=== PATIENT | female | born 1950 | race Caucasian/White ===

== ENCOUNTER → 2016-12-24 | Outpatient (CLI) | payer OTHER | END | disposition home or self-care (01) | LOC: C.MAMM 08:55 | PROVIDERS: ATTEND Nurse Practitioner Adult Health | DX: M47.812 Spondylosis without myelopathy or radiculopathy, cervical region (principal); M81.0 Age-related osteoporosis without current pathological fracture; M85.80 Other specified disorders of bone density and structure, unspecified site; E55.9 Vitamin D deficiency, unspecified; F17.200 Nicotine dependence, unspecified, uncomplicated; Z79.83 Long term (current) use of bisphosphonates; Z78.0 Asymptomatic menopausal state; Z82.62 Family history of osteoporosis ==

== ENCOUNTER → 2017-01-15 | Outpatient (CLI) | payer OTHER ==
--- NOTE | 2017-01-15 12:39 | MAMMOGRAPHY REPORT ---
BILATERAL DIGITAL SCREENING MAMMOGRAM WITH CAD: 01/15/2017 CLINICAL HISTORY: Routine screening. Patient has no complaints. TECHNIQUE: Current study was also evaluated with a Computer Aided Detection (CAD) system. COMPARISON: Comparison is made to exams dated: 01/12/2016 mammogram, 01/04/2014 mammogram, 01/11/2015 ma mmogram, 12/30/2012 mammogram, 12/24/2011 mammogram, and 12/19/2010 mammogram - [facility] nter. BREAST COMPOSITION: There are scattered areas of fibroglandular density in both breasts. FINDINGS: The parenchymal pattern is unchanged. No developing mass, architectural distortion or clu ster of suspicious microcalcifications is seen in either breast. IMPRESSION: ACR BI-RADS CATEGORY 2: BENIGN There is no mammographic evidence of malignancy. A 1 year screening mammogram is recommended. The p atient will receive written notification of the results. Approximately 10% of breast cancers are not detected with mammography. A negative mammographic repor t should not delay biopsy if a clinically suggestive mass is present. Fior Maddox M.D. ay/:01/15/2017 08:39:26 Internet Marketing Specialist: Alondra MCKENNA(Jan)(Yovanny), [facility] letter sent: Normal 1/2 BI-RADS Code: ACR BI-RADS Category 2: Benign
== END | disposition home or self-care (01) ==
LOC: C.MAMM 08:09
PROVIDERS: ATTEND Internal Medicine
DX: Z12.31 Encounter for screening mammogram for malignant neoplasm of breast (principal)

== ENCOUNTER → 2017-02-28 | Outpatient (CLI) | payer OTHER ==
[2017-02-28 09:48] LABS: BASO % 0.7 %; BASO ABS # 0.05 K/uL (0-0.2); COMPLETE YES; EOS % 3.7 %; HEMATOCRIT 45.4 % (37-47); IG% 0.4 %; LYMPH % 34.3 %; LYMPH ABS # 2.52 K/uL (1.2-3.4); MEAN CELL VOLUME 96.2 fL (80-100); MEAN CORPUSCULAR HEMOGLOBIN 31.8 pg (25-34); MEAN PLATELET VOLUME 10.4 fL (7.4-10.4); MONO % 7.3 %; NEUT % 53.6 %; PLATELET COUNT 280 K/uL (130-400); RED BLOOD COUNT 4.72 M/uL (4.2-5.4); WHITE BLOOD COUNT 7.35 K/uL (4.8-10.8)
[2017-02-28 10:15] LABS: ALT/SGPT 22 U/L (12-78); BLOOD UREA NITROGEN 19 mg/dl (7-18); BUN/CREATININE RATIO 34.6 (10-20); CARBON DIOXIDE 29 mmol/L (21-32); CHLORIDE 108 mmol/L (98-107); CHOLESTEROL 196 mg/dl (0-200); CREATININE 0.56 mg/dl (0.60-1.20); GLUCOSE 103 mg/dl (70-99); POTASSIUM 3.6 mmol/L (3.5-5.1); SODIUM 145 mmol/L (136-145); TRIGLYCERIDES 130 mg/dl (0-150); VERY LOW DENSITY LIPOPROT CALC 26 mg/dl
[2017-02-28 10:24] LABS: ALB/GLOB RATIO 1.2 (0.9-2); ALKALINE PHOSPHATASE 80 U/L (45-117); AST/SGOT 16 U/L (15-37); CHOLESTEROL/HDL RATIO 3.3; HDL CHOLESTEROL 60 mg/dl; LDL CHOLESTEROL CALCULATED 110 mg/dl; THYROID STIMULATING HORMONE 0.691 uIu/ml (0.300-4.500)
[2017-02-28 10:30] LABS: CALCIUM 9.4 mg/dl (8.5-10.1)
== END | disposition home or self-care (01) ==
LOC: C.LAB1850 07:06
PROVIDERS: ATTEND Nurse Practitioner Adult Health
DX: F34.1 Dysthymic disorder (principal); D72.829 Elevated white blood cell count, unspecified; F41.9 Anxiety disorder, unspecified; E78.5 Hyperlipidemia, unspecified; Z72.0 Tobacco use; E55.9 Vitamin D deficiency, unspecified; M81.0 Age-related osteoporosis without current pathological fracture

== ENCOUNTER → 2017-04-28 | Outpatient (CLI) | payer OTHER ==
[2017-04-28 10:09] LABS: CALCIUM URINE 14.4 mg/dl
[2017-04-29 17:48] LABS: GAMMA GLOBULIN 0.7 G/DL (0.8-1.7); TOTAL PROTEIN 6.5 G/DL (6.2-8.3)
== END | disposition home or self-care (01) ==
LOC: C.LAB1850 07:15
PROVIDERS: ATTEND Internal Medicine Rheumatology
DX: M81.0 Age-related osteoporosis without current pathological fracture (principal); E61.8 Deficiency of other specified nutrient elements

== ENCOUNTER → 2017-07-30 | Outpatient (CLI) | payer OTHER | END | disposition home or self-care (01) | LOC: C.LAB1850 15:47 | PROVIDERS: ATTEND Internal Medicine Rheumatology | DX: E55.9 Vitamin D deficiency, unspecified (principal) ==

== ENCOUNTER → 2017-09-22 | Outpatient (CLI) | payer OTHER ==
--- NOTE | 2017-09-22 08:05 | DIAGNOSTIC IMAGING REPORT ---
(CHEST) THORAX WITHOUT CLINICAL HISTORY: 67 years-old Female presenting with R91.8 Multiple pulmonary nodules. TECHNIQUE: Multidetector CT imaging of the chest was performed without the use of intravenous contrast. IV contrast: None. A dose lowering technique was used consistent with the principles of ALARA (as low as reasonably achievable). COMPARISON: 09/27/2015. CT DOSE (mGy.cm): The estimated cumulative dose is 192.44 mGy.cm. FINDINGS: Masticator topogram: Unremarkable. On soft tissue windows, normal thyroid and thoracic inlet. Calcified mediastinal and hilar lymph nodes likely indicate prior granulomatous infection. Atherosclerosis of the aorta. Minimal aortic valve calcification. Normal heart size. No pericardial or pleural effusion. Focal hypodensity in the left hepatic lobe, indeterminate but likely hepatic cyst. On lung windows, previously noted stable small solid pulmonary nodules in the right lower lobe (series 4 image 234) and left upper lobe (series 4 image 82), unchanged since 2008 consistent with a benign etiology. Mild emphysema. Scarring at the apices. Subpleural bandlike opacity in the right upper lobe (series 4 image 73), right middle lobe (series 4 image 157), and lingula, (series 4 image 226), unchanged and consistent with cicatrizing atelectasis. Stable solid fissural nodule in the left lower lobe (series 4 image 168). No new nodule or focal infiltrate. Calcified granulomas again noted. Minimal debris noted in the right upper lobe bronchus. Mild bronchial wall thickening suggested. On bone windows, partially visualized anterior cervical fusion hardware. Deformities of right lateral ribs suggest prior fracture or surgery. IMPRESSION: 1. Stable bilateral pulmonary nodules. These have been stable since 2008, which is consistent with a benign etiology. 2. Emphysema. 3. Evidence of prior granulomatous infection. Electronically signed by: Jabari Hartman M.D. 09/22/2017 8:04 AM Dictated Date/Time: 09/22/2017 7:56 AM
== END | disposition home or self-care (01) ==
LOC: C.CTS 06:30
PROVIDERS: ATTEND Nurse Practitioner Adult Health
DX: F17.200 Nicotine dependence, unspecified, uncomplicated (principal); R91.8 Other nonspecific abnormal finding of lung field; J43.9 Emphysema, unspecified

== ENCOUNTER → 2018-01-20 | Outpatient (CLI) | payer OTHER ==
--- NOTE | 2018-01-20 15:13 | MAMMOGRAPHY REPORT ---
BILATERAL DIGITAL SCREENING MAMMOGRAM TOMOSYNTHESIS WITH CAD: 01/20/2018 CLINICAL HISTORY: Routine screening. Patient has no complaints. TECHNIQUE: Breast tomosynthesis in addition to standard 2D mammography was performed. Current study was also evaluated with a Computer Aided Detection (CAD) system. COMPARISON: Comparison is made to exams dated: 01/15/2017 mammogram, 01/12/2016 mammogram, 01/11/2015 mamm ogram, 01/04/2014 mammogram, 12/30/2012 mammogram, and 12/24/2011 mammogram - [facility] er. BREAST COMPOSITION: There are scattered areas of fibroglandular density in both breasts. FINDINGS: There is stable focal asymmetry in the 11:00 to 12:00 right breast. No suspicious mass, ar chitectural distortion or cluster of microcalcifications is seen. IMPRESSION: ACR BI-RADS CATEGORY 1: NEGATIVE There is no mammographic evidence of malignancy. A 1 year screening mammogram is recommended. The pa tient will receive written notification of the results. Approximately 10% of breast cancers are not detected with mammography. A negative mammographic report should not delay biopsy if a clinically suggestive mass is present. Fior Maddox M.D. ay/:01/20/2018 08:14:40 Production Inspector: Angie MCKENNA(Jan)(Yovanny)([place]), [facility] letter sent: Normal 1/2 BI-RADS Code: ACR BI-RADS Category 1: Negative
== END | disposition home or self-care (01) ==
LOC: C.MAMM 07:38
PROVIDERS: ATTEND Internal Medicine
DX: Z12.31 Encounter for screening mammogram for malignant neoplasm of breast (principal)